=== PATIENT | female | born 1945 | race Caucasian/White ===

== ENCOUNTER 2023-08-03 11:18 | Outpatient (REF) | payer MEDICARE, OTHER, SELFPAY ==
[2023-08-03 12:44] LABS: Erythrocyte Sedimentation Rate 6 MM/HR (0-20)
[2023-08-03 13:05] LABS: Vitamin B12 581 pg/mL (200-900)
[2023-08-04 11:43] LABS: Lyme Abs Screen <0.90 index
== END 2023-08-03 11:19 | disposition home or self-care (01) ==
LOC: HO.LAB 11:18
PROVIDERS: Visit Provider Psychiatry & Neurology Neurology
DX: G30.9 Alzheimer's disease, unspecified (principal)
CPT/HCPCS: 36415; 82607; 85652; 86617; 86618